=== PATIENT | female | born 1960 | race Asian ===

== ENCOUNTER 2018-08-19 08:14 | Outpatient (CLI) | payer BC | END 2018-08-19 20:10 | disposition home or self-care (01) | LOC: MAMMO 08:14 | DX: Z12.31 Encounter for screening mammogram for malignant neoplasm of breast (principal) ==

== ENCOUNTER 2020-10-18 10:55 | Outpatient (CLI) | payer BC | END 2020-10-18 21:51 | disposition home or self-care (01) | LOC: LABW 10:55 | PROVIDERS: ATTEND Podiatrist | DX: M10.071 Idiopathic gout, right ankle and foot (principal) | CPT/HCPCS: 36415; 84550; 86140 ==

== ENCOUNTER 2022-05-28 08:41 | Outpatient (CLI) | payer BC | END 2022-05-28 18:46 | disposition home or self-care (01) | LOC: MAMMO 08:41 | PROVIDERS: ATTEND Registered Nurse | DX: Z12.31 Encounter for screening mammogram for malignant neoplasm of breast (principal) ==